=== PATIENT | male | born 1965 | race Caucasian/White ===

== ENCOUNTER 2022-01-01 10:37 | Outpatient (CLI) | payer SELFPAY ==
[2022-01-01 12:14] LABS: Bilirubin Neg (Negative); Blood, Urine 250 (Negative); Clarity Cloudy (Clear); Glucose, Urine (Dipstick) Normal (Negative); Hemoglobin 17.4 g/dL (13.5-17.5); Ketone, Urine Negative (Negative); Leukocyte 100 (Negative); Mean Corpuscular HGB CONC 34.4 g/dL (32.0-36.0); Mean Corpuscular Hemoglobin 29.4 pg (27.0-33.0); Mean Corpuscular Volume 85.6 fl (81.2-95.1); Mean Platelet Volume 9.7 fl (7.4-10.4); Nitrite Negative (Negative); Platelet Count 283 10x3/uL (150-450); Protein, Urine (Dipstick) 100 mg/dl (Neg-Trace); RBC Distribution Width 13.2 % (11.5-14.5); Red Blood Cell (RBC) Count 5.91 10x6/uL (4.32-5.72); Urobilinogen Normal mg/dL (Less than 2); White Blood Cell (WBC) Count 9.8 10x3/uL (3.5-10.5)
[2022-01-01 12:32] LABS: INR-International Normal Ratio 0.9; PTT 26.1 sec (22.0-33.0); Prothrombin Time 10.1 sec (9.5-12.1)
[2022-01-01 12:33] LABS: Bacteria/HPF 1+ HPF (None Seen); RBC/HPF Greater than 50 HPF (0-3)
[2022-01-01 12:34] LABS: Anion Gap 19 mmol/L (10-20); BUN (Urea Nitrogen) 19 mg/dL (8.4-25.7); Calc. Creatinine Clearance 0 mL/min (70-130); Carbon Dioxide 22 mmol/L (22-29); Chloride 104 mmol/L (98-107); Estimated GFR 87; Glucose 96 mg/dL (70-105); Potassium 4.6 mmol/L (3.5-5.1); Sodium 140 mmol/L (136-145)
== END 2022-01-01 10:38 | disposition home or self-care (01) ==
LOC: LABBT 10:37
PROVIDERS: ATTEND Urology
DX: Z01.818 Encounter for other preprocedural examination (principal); N20.0 Calculus of kidney; G89.29 Other chronic pain; Z20.822 Contact with and (suspected) exposure to COVID-19
CPT/HCPCS: 80048; 81001; 85027; 85610; 85730; 87086; 87811; 93005; 93010

== ENCOUNTER 2022-01-04 05:56 | Day surgery (SDC) | payer OTHER ==
[2022-01-03 10:06] VITALS: BMI 35.2
[2022-01-04] MEDS ORDERED: Lidocaine 1% MPF 2 ML VIAL ONE (06:27)
[2022-01-04] MEDS ORDERED: Levofloxacin 500 mg/D5W 100 ml Premix Bag ONE ×2 (06:28→07:24)
[2022-01-04] MEDS ORDERED: HYDROmorphone 0.5 MG/0.5 ML SYRINGE ONE (06:51)
[2022-01-04] MEDS ORDERED: fentaNYL Citrate/PF 100 MCG/2 ML SYRINGE ONE (06:51)
[2022-01-04] MEDS ORDERED: Iopamidol 0 ML ONE (06:54)
[2022-01-04] MEDS ORDERED: B & O ONE (06:54)
[2022-01-04] MEDS ORDERED: SUGAMMADEX SODIUM 200 MG/2 ML VIAL ONE ×2 (07:17)
[2022-01-04] MEDS ORDERED: Famotidine/PF 20 mg/2ml Vial ONE (07:17)
[2022-01-04] MEDS ORDERED: Midazolam HCl 2 mg/2 ml Vial ONE (07:35)
[2022-01-04] MEDS ORDERED: Ketamine 50 MG/ML (10ML VIAL) ONE (07:40)
[2022-01-04] MEDS ORDERED: Succinylcholine 200 MG/10 ml SYRINGE FS ONE (07:45)
[2022-01-04] MEDS ORDERED: Rocuronium Bromide 10 MG/ML (10ML VIAL) ONE (07:45)
[2022-01-04] MEDS ORDERED: Ketorolac Tromethamine 30 MG/ML VIAL ONE (07:45)
[2022-01-04] MEDS ORDERED: Ondansetron PF 4 MG/2 ML Vial ONE (07:45)
[2022-01-04] MEDS ORDERED: Dexamethasone 20 MG/5 ML VIAL ONE (07:45)
[2022-01-04] MEDS ORDERED: PROPOFOL 200 MG/20 ML VIAL ONE (07:45)
[2022-01-04] MEDS ORDERED: Phenylephrine 10 MG/ML VIAL ONE (07:45)
[2022-01-04] MEDS ORDERED: Labetalol HCl 100 MG/20 ML VIAL ONE (07:45)
[2022-01-04] MEDS ORDERED: Lidocaine 2% PF 5 ML VIAL ONE (07:45)
== END 2022-01-04 10:10 | disposition home or self-care (01) ==
LOC: SDC 05:56
PROVIDERS: ATTEND Urology
PROC: 0T768DZ Dilation of Right Ureter with Intraluminal Device, Via Natural or Artificial Opening Endoscopic (ICD-10-PCS; principal; 2022-01-04)
PROC: 0TC68ZZ Extirpation of Matter from Right Ureter, Via Natural or Artificial Opening Endoscopic (ICD-10-PCS; principal; 2022-01-04)
DX: N20.0 Calculus of kidney (principal); I10 Essential (primary) hypertension; E78.5 Hyperlipidemia, unspecified; G89.29 Other chronic pain; M54.9 Dorsalgia, unspecified; Z79.899 Other long term (current) drug therapy
CPT/HCPCS: 76000; 82365; 88300; C1713; C2617; J1100; J1170; J1885; J1956; J2001; J2250; J2370; J2405; J2704; Q9967; S0028

== ENCOUNTER 2025-03-08 09:58 | Outpatient (CLI) | payer OTHER | END 2025-03-08 09:59 | disposition home or self-care (01) | LOC: BICCT 09:58 | PROVIDERS: ATTEND Physician Assistant | DX: Z13.6 Encounter for screening for cardiovascular disorders (principal); R06.02 Shortness of breath | CPT/HCPCS: 75571 ==